=== PATIENT | female | born 1965 | race Caucasian/White ===

== ENCOUNTER 2019-01-04 08:00 | Outpatient (CLI) | payer OTHER ==
[2019-01-04 12:50] LABS: BASOPHILS % (AUTO) 0.4 %; EOSINOPHILS # (AUTO) 0.2 10^3/uL (0.0-0.7); HGB - HEMOGLOBIN 12.5 g/dL (12.0-16.0); MEAN CORPUSCULAR HEMOGLOBIN 29.2 pg (27.0-31.0); MEAN CORPUSCULAR VOLUME 88.5 fL (81.0-99.0); MEAN PLATELET VOLUME 9.3 fL (7.9-10.8); MONOCYTES # (AUTO) 0.8 10^3/uL (0.0-1.0); NEUTROPHILS % (AUTO) 66.6 %; PLT - PLATELET COUNT 305 10^3/uL (130-450); RED BLOOD COUNT 4.26 10^6/uL (4.20-5.40); RED CELL DISTRIBUTION WIDTH 13.2 % (12.0-15.0)
[2019-01-04 13:37] LABS: % IRON SATURATION 10 % (20-50); ALBUMIN 3.6 g/dL (3.2-5.5); ALBUMIN/GLOBULIN RATIO 1.1 (1.0-2.2); ALKALINE PHOSPHATASE 43 IU/L (42-121); ALT ALANINE AMINOTRANSFERASE 21 IU/L (10-60); AST ASPARTATE AMINOTRANSFERASE 18 IU/L (10-42); BILIRUBIN,TOTAL 0.7 mg/dL (0.2-1.0); BUN - BLOOD UREA NITROGEN 15 mg/dL (6-20); CHOLESTEROL 180 mg/dL; CREATININE 0.9 mg/dL (0.4-1.0); GFR - MDRD 66 (>89); HDL CHOLESTEROL 61 mg/dL; IRON 46 ug/dL (28-170); LDL CHOLESTEROL,CALCULATED 95 mg/dL; LDL/HDL RATIO 1.6 (<4.4); TOTAL IRON BINDING CAPACITY 451 ug/dL (250-450); TRANSFERRIN 322 mg/dL (192-382); VLDL CHOLESTEROL 24 mg/dL
[2019-01-04 13:48] LABS: CALCIUM 9.2 mg/dL (8.5-10.3); CARBON DIOXIDE - CO2 26 mmol/L (21-32); CHLORIDE 105 mmol/L (101-111); GLUCOSE 87 mg/dL (70-100); SODIUM 139 mmol/L (135-145)
== END 2019-01-04 23:59 | disposition home or self-care (01) ==
LOC: LAB.WCP 08:00
PROVIDERS: ATTEND Physician Assistant
DX: Z00.00 Encounter for general adult medical examination without abnormal findings (principal); D50.9 Iron deficiency anemia, unspecified
CPT/HCPCS: 36415; 80053; 80061; 83540; 83721; 84443; 84466; 85025

== ENCOUNTER 2019-01-25 10:58 | Outpatient (CLI) | payer OTHER ==
--- NOTE | 2019-01-25 13:02 | Ultrasound Report ---
Reason: DYSFUNCTIONAL UTERINE BLEEDING Procedure Date: 01/25/2019 Accession Number: [id number] / [id number] Procedure: US - Pelvic w/Transvaginal CPT Code: FULL RESULT: EXAM: PELVIC ULTRASOUND EXAM DATE: 01/25/2019 12:34 PM. CLINICAL HISTORY: Dysfunctional uterine bleeding. COMPARISON: None. TECHNIQUE: Realtime transabdominal pelvic scan performed to identify the uterus and adnexa and as an overview of other pelvic structures, followed by transvaginal scan to provide greater detail of the uterus and adnexa, with static image documentation. FINDINGS: Uterus: 9.8 x 4.5 x 6.0 cm, volume 138 cc. Anteverted position. Normal overall size and echotexture. Masses: 2.6 cm low-density anterior myometrial mass consistent with fibroid. Similar-appearing 1.7 cm mass posterior fundus. Endometrium: 11 mm. Normal echotexture. Cervix: Nabothian cysts otherwise normal. Right Ovary: 3.6 x 1.7 x 2.1 cm, volume 6.7 cc. Normal echotexture and blood flow. Left Ovary: 3.9 x 2.7 x 4.1 cm, volume 22.5 cc. Mildly complex thick-walled/mildly crenulated avascular mass of the ovary most likely partially collapsed corpus luteum. Free Fluid: Trace. Other: None. IMPRESSION: 1. Myometrial masses as described consistent with uterine fibroids. Endometrial stripe 11 mm. 2. Complex cystic finding of the left ovary favors partially collapsed corpus luteal cyst. Recommend follow-up in 6-8 weeks to assess for expected resolution. RADIA
== END 2019-01-25 10:59 | disposition home or self-care (01) ==
LOC: DI 10:58
PROVIDERS: ATTEND Physician Assistant
DX: N85.9 Noninflammatory disorder of uterus, unspecified (principal); N83.202 Unspecified ovarian cyst, left side; N92.4 Excessive bleeding in the premenopausal period
CPT/HCPCS: 76830; 76856

== ENCOUNTER 2019-01-28 10:03 | Outpatient (CLI) | payer OTHER ==
--- NOTE | 2019-01-29 09:58 | Mammography Report ---
Reason: SCREENING MAMMO Procedure Date: 01/28/2019 Accession Number: [id number] / [id number] Procedure: MGN - Screening Mammo Dig Bilat CPT Code: FULL RESULT: EXAM: Screening Mammo Dig Bilat DATE: 01/28/2019 10:26 AM CLINICAL HISTORY: Screening encounter. History of cyclic breast tenderness. No reported risk factors. TECHNIQUE: (B) - Bilateral CC and MLO views were obtained. COMPARISON: 08/08/2016 through 09/29/2014. PARENCHYMAL PATTERN: (A) - The breasts demonstrate scattered fibroglandular densities bilaterally. FINDINGS: There are no suspicious masses, calcifications, or areas of distortion. IMPRESSION: Negative examination. BI-RADS category 1. RECOMMENDATION: (ANNUAL) - Recommend routine annual screening mammography. BI-RADS CATEGORY: (1) - Negative. STANDARD QUALIFYING STATEMENTS: 1. This examination was reviewed with the aid of Computer-Aided Detection (CAD). 2. A negative or benign imaging report should not preclude biopsy if clinically suspicious findings are present. 3. Dense breasts may obscure an underlying neoplasm. 4. This examination was reviewed without the aid of 3D breast imaging (tomosynthesis).
== END 2019-01-28 10:04 | disposition home or self-care (01) ==
LOC: DI.N 10:03
DX: Z12.31 Encounter for screening mammogram for malignant neoplasm of breast (principal)
CPT/HCPCS: 77067

== ENCOUNTER 2019-03-26 10:35 | Outpatient (CLI) | payer OTHER | END 2019-03-26 10:36 | disposition home or self-care (01) | LOC: LAB.WCP 10:35 | PROVIDERS: ATTEND Physician Assistant | DX: J02.9 Acute pharyngitis, unspecified (principal) | CPT/HCPCS: 87070 ==

== ENCOUNTER 2019-09-02 08:00 | Outpatient (CLI) | payer OTHER ==
[2019-09-02 18:21] LABS: HGB - HEMOGLOBIN 14.1 g/dL (12.0-16.0); MEAN CORPUSCULAR HEMOGLOBIN 29.9 pg (27.0-31.0); MEAN CORPUSCULAR VOLUME 96.4 fL (81.0-99.0); MEAN PLATELET VOLUME 11.4 fL (7.9-10.8); RED BLOOD COUNT 4.72 10^6/uL (4.20-5.40); WHITE BLOOD COUNT 7.1 x10^3/uL (4.8-10.8)
[2019-09-02 18:57] LABS: CRP - C-REACTIVE PROTEIN < 1.0 mg/dL (0-1.0)
[2019-09-02 19:00] LABS: RHEUMATOID FACTOR NEGATIVE (Negative)
[2019-09-02 19:07] LABS: URIC ACID 4.9 mg/dL (2.6-7.2)
[2019-09-04 10:41] LABS: ANA SCREEN NEGATIVE (NEGATIVE)
== END 2019-09-02 23:59 | disposition home or self-care (01) ==
LOC: LAB.WCP 08:00
PROVIDERS: ATTEND Physician Assistant Medical
DX: M25.50 Pain in unspecified joint (principal)
CPT/HCPCS: 36415; 84550; 85027; 85651; 86038; 86140; 86200; 86430

== ENCOUNTER 2019-12-13 04:59 | Emergency (ER) | payer OTHER ==
[2019-12-13] MEDS ORDERED: ACETAMINOPHEN 325 MG TABLET PO STA (05:27)
[2019-12-13] MEDS ORDERED: IBUPROFEN 600 MG TABLET PO STA (05:27)
--- NOTE | 2019-12-13 05:27 | ED Physician Documentation ---
History of Present Illness - Stated complaint Stated Complaint: R ANKLE PX - Additonal information Additional information: This is a 54-year-old female presents with right ankle pain after an inversion type injury. She was stepping off a stairwell carrying a grandchild and she had a inversion injury of her ankle she had immediate pain she felt her ankle went almost to 90 degrees. She was unable to bear weight on it initially but after icing it she was able to take a few steps though with pain. She states the pain is not gotten better with prompting her to come to the emergency department. Initial injury was last night. She has not taken any pain medications recently. She has been icing it since this occurred. She denies numbness. 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: Tubal ligation HEENT: Cataracts - Present Medications Home Medications: Ambulatory Orders Medication Instructions Recorded Confirmed Ferrous Sulfate 324 mg PO DAILY 12/04/14 12/04/14 Aspirin 81 mg PO 12/13/19 Hydrocodone/Acetaminophen 1 each PO Q6H PRN #10 tablet 12/13/19 [Hydrocodon-Acetaminophen 5-325] Sennosides/Docusate Sodium 1 each PO BID PRN #30 tablet 12/13/19 [Docusate Sodium-Sennosides Tab] amLODIPine [Norvasc] 5 mg PO ONCE 12/13/19 12/13/19 raNITIdine HCl [Zantac] 12/13/19 - Allergies Allergies/Adverse Reactions: Allergies Allergy/AdvReac Type Severity Reaction Status Date / Time Sulfa (Sulfonamide Allergy Intermediate Hives Verified 01/02/14 09:59 Antibiotics) PD ED PE NORMAL - Vitals Vital signs reviewed: Yes - General General: Alert and oriented X 3, No acute distress - HEENT HEENT: PERRL - Cardiac Cardiac: Other (Well-perfused extremities, skin warm and dry) - Respiratory Respiratory: No respiratory distress - Abdomen Abdomen: Non distended - Extremities Extremities: No deformity, Other (There is ecchymosis over the lateral malleolus of the right ankle extending around 5 cm up and 3 cm down anteriorly to the malleolus. There is tenderness in this region. The medial malleolus is nontender as is the forefoot. The calcaneus is also nontender. Patient is able to wiggle her toes, movement of the ankle itself causes pain. The proximal tibia and fibula are atraumatic in appearance and nontender. Sensation intact light touch over the entire foot.) - Neuro Neuro: Alert and oriented X 3 - Psych Psych: Normal mood, Normal affect Results - Vitals Vitals: Vital Signs - 24 hr 12/13/19 05:11 Temperature 36.8 C Heart Rate 96 Respiratory 17 Rate Blood Pressure 152/86 H O2 Saturation 98 Oxygen O2 Source Room air Procedures - Splint (location) Lower extremity right Splint applied by: Tech Type of splint: Fiberglass, Short leg, Posterior, Stirrup Other: Patient tolerated well, No complications, Neurovascular intact, Crutches provided PD MEDICAL DECISION MAKING - ED course ED course: Patient presents with an isolated right ankle injury after an inversion type mechanism. She is neurovascular intact she does have some extensive bruising over the lateral malleolus. There is no tenderness on the proximal leg. X-rays reveal a very slightly displaced distal fibular fracture at the level of the ankle mmortise. We put her in a posterior short leg slab with a stirrup (AO splint), And will make her nonweightbearing with crutches. She was given Tylenol ibuprofen here, she did not want any stronger medication at this time. After the splint was applied she continued to be neurovascularly intact. I discussed with her she needs orthopedic follow-up and in the meantime should be nonweightbearing. She was prescribed a small number of hydrocodone to be used if necessary, and I reviewed return precautions emphasizing symptoms of compartment syndrome. Patient agreed this plan and was discharged home in the care of her . Departure - Departure Disposition: 01 Home, Self Care Clinical Impression: Fibula fracture Qualifiers: Encounter type: initial encounter Fibula location: distal Fracture type: closed Fracture morphology: other fracture Laterality: right Qualified Code(s): S82.831A - Other fracture of upper and lower end of right fibula, initial encounter for closed fracture Condition: Good Instructions: ED Fx Ankle Lateral Malleolus Follow-Up: Bryant Kumari MD [Provider Admit Priv/Credential] - (Call today for an appt in the next week) Sarah Phan PA-C [Primary Care Provider] - Prescriptions: Hydrocodone/Acetaminophen [Hydrocodon-Acetaminophen 5-325] 1 each PO Q6H PRN #10 tablet PRN Reason: pain Sennosides/Docusate Sodium [Docusate Sodium-Sennosides Tab] 1 each PO BID PRN #30 tablet PRN Reason: Constipation Comments: You broke the outside portion of your ankle - the bone called the fibula. We have placed a splint, do not walk on the ankle/bear weight on this injury until you are cleared to do so by an orthopedist. Use the crutches. Please call today for an appointment with Dr. Kumari in the next week. If you are having greatly increasing pain, numbness, or other concerning symptoms return to the emergency department for recheck. I am prescribing you some Vicodin for pain, but if you can manage your pain with just Tylenol and ibuprofen alone, that is ideal. Do not drink alcohol or drive while taking narcotic pain medication. Note that many narcotic pain relievers also contain Tylenol/acetaminophen. Please ensure that your total dose of acetaminophen from all sources does not exceed 3 g (3000 mg) per day. You may get constipated while on this medication. Take a stool softener such as Colace twice a day while you are on it. Also add an nari-zmv-onptwbg laxative such as senna or MiraLAX on any day that you do not have a bowel movement. If you received a narcotic pain medication or sedative while in the emergency department, do not drive for the next 24 hours.
--- NOTE | 2019-12-13 05:54 | XRAY Report ---
Reason: R ankle lateral bruising and pain after inversion Procedure Date: 12/13/2019 Accession Number: [id number] / [id number] Procedure: XR - Ankle 3 View RT CPT Code: Final Report FULL RESULT: EXAM: RIGHT ANKLE RADIOGRAPHY EXAM DATE: 12/13/2019 05:42 AM. CLINICAL HISTORY: R ankle lateral bruising and pain after inversion. COMPARISON: None. TECHNIQUE: 3 views. FINDINGS: Bones: Oblique, mildly displaced fracture of the distal fibular shaft. Joints: Normal. No effusion. No subluxations. The ankle mortise is normally aligned. Soft Tissues: Lateral soft tissue swelling. IMPRESSION: Oblique, mildly displaced fracture of the distal fibular shaft. RADIA
[2019-12-13 06:56] VITALS: BP 146/92
== END 2019-12-13 06:43 | disposition home or self-care (01) ==
LOC: ED 04:59
DX: Z79.82 Long term (current) use of aspirin (principal); S82.831A Other fracture of upper and lower end of right fibula, initial encounter for closed fracture; X50.9XXA Other and unspecified overexertion or strenuous movements or postures, initial encounter; Y93.F9 Activity, other caregiving; Y92.008 Other place in unspecified non-institutional (private) residence as the place of occurrence of the external cause
CPT/HCPCS: 29515; 73610; 99283; 99284; A9270

== ENCOUNTER 2019-12-25 08:53 | Day surgery (SDC) | payer OTHER ==
[~2019-12-25 08:53] MED LIST: CEFAZOLIN SODIUM IN 0.9 % NACL 2 GM/100 ML BAG IV ONE
[2019-12-25 09:22] LABS: HCG UR QUAL NEGATIVE
[2019-12-25] MEDS ORDERED: LACTATED RINGERS 1,000 ML IV ONE ×2 (09:41→12:21)
--- NOTE | 2019-12-25 09:55 | ANESTHESIA ---
Pre-Anesthesia VS, & Labs - Diagnosis right ankle lateral maleolus fracture - Procedure Right ankle ORIF lateral maleolus fracture possible medial exploration Vital Signs: Temp Pulse Resp BP Pulse Ox 36.8 C 76 16 127/78 100 12/25/19 09:22 12/25/19 09:22 12/25/19 09:22 12/25/19 09:22 12/25/19 09:22 Height 5 ft Weight (kg) 64.7 kg Body Mass Index 28.3 - NPO >8 hours - Is Patient ?: No Home Medications and Allergies Home Medications: Ambulatory Orders Albuterol Sulf [Ventolin Hfa Inhaler] 1 - 2 puffs INH Q4HR PRN 12/23/19 Cetirizine [ZyrTEC] 10 mg PO DAILY PRN 12/23/19 EPINEPHrine [Epinephrine] 0.3 mg IJ ONCE PRN 12/23/19 Fluticasone Propionate [24 Hour Allergy] 2 spray NS DAILY PRN 12/23/19 Fluticasone Propionate [Flovent Hfa] 2 puffs IH DAILY 12/23/19 Ferrous Sulfate 324 mg PO DAILY 12/04/14 Aspirin 81 mg PO DAILY 12/13/19 amLODIPine [Norvasc] 5 mg PO ONCE 12/13/19 raNITIdine HCl [Zantac] 150 mg PO BID 12/13/19 Albuterol Sulf [Ventolin Hfa Inhaler] 1 - 2 puffs INH Q4HR PRN 12/23/19 Cetirizine [ZyrTEC] 10 mg PO DAILY PRN 12/23/19 EPINEPHrine [Epinephrine] 0.3 mg IJ ONCE PRN 12/23/19 Fluticasone Propionate [24 Hour Allergy] 2 spray NS DAILY PRN 12/23/19 Fluticasone Propionate [Flovent Hfa] 2 puffs IH DAILY 12/23/19 Allergies/Adverse Reactions: Allergies Allergy/AdvReac Type Severity Reaction Status Date / Time Sulfa (Sulfonamide Allergy Intermediate Hives Verified 12/25/19 09:32 Antibiotics) gluten Allergy Unknown Verified 12/16/19 14:25 peanut Allergy Unknown Verified 12/16/19 14:25 soy Allergy Itching Verified 12/25/19 09:31 Anes History & Medical History - Anesthetic History Anesthesia Complications: reports: No previous complications - Medical History Cardiovascular: reports: None, Other (Raynaud's) Pulmonary: reports: Asthma (Has stopped long acting inhalors for 2 weeks. Denies any asthma symptoms), Sleep apnea Gastrointestinal: reports: GERD (controlled on medication) Urinary: reports: None Neuro: reports: None Musculoskeletal: reports: None, Other (seeing automated weaver for hand/joint pain. Ruling out RA) Endocrine/Autoimmune: reports: None Blood Disorders: reports: None Skin: reports: None Smoking Status: Never smoker Psychosocial: reports: No issues indicated - Surgical History General: Colonoscopy Eyes Ears Nose Throat (EENT): Cataracts Gynecologic: Tubal ligation Exam General: Alert, Oriented x3, Cooperative, No acute distress Dental: Other (Front tooth chipped has veneer) Mouth Openin Fingerbreadth Neck Mobility: Normal Mallampati classification: I Thyromental Distance: greater than 6 cm Respiratory: Lungs clear, Normal breath sounds, No respiratory distress, No accessory muscle use Cardiovascular: Regular rate, Normal S1, Normal S2, No murmurs Mental/Cognitive Status: Alert/Oriented X3, Normal for patient Plan Anesthesia Type: General, Popliteal Block (Right) Regional Block: Per Surgeon's request for Post Op pain control Consent for Procedure(s) Verified and Reviewed: Yes Code Status: Attempt Resuscitation ASA classification: 2-Mild systemic disease Is this case an emergency?: No
[2019-12-25] MEDS ORDERED: BUPIVACAINE 0.25% PF 30 ML VIAL ONE (09:59)
[2019-12-25] MEDS ORDERED: ACETAMINOPHEN 1,000 MG/100 ML 100 ML IV ONE (10:25)
[2019-12-25] MEDS ORDERED: MIDAZOLAM 2 MG/2 ML VIAL IVP ONE (10:25)
[2019-12-25] MEDS ORDERED: ONDANSETRON 4 MG/2 ML VIAL IVP ONE (10:25)
[2019-12-25] MEDS ORDERED: GLYCOPYRROLATE 1 MG/5 ML VIAL IVP ONE (10:25)
[2019-12-25] MEDS ORDERED: PHENYLEPHRINE 10 MG/ML VIAL IV ONE (10:25)
[2019-12-25] MEDS ORDERED: ePHEDrine 50 MG/ML VIAL IVP ONE (10:25)
[2019-12-25] MEDS ORDERED: NEOSTIGMINE 1 MG/1 ML 10 ML MDV IVP ONE (10:25)
[2019-12-25] MEDS ORDERED: LIDOCAINE-MPF 2% 5 ML VIAL IM ONE (10:25)
[2019-12-25] MEDS ORDERED: PROPOFOL 200 MG/20 ML VIAL IVP ONE (10:25)
[2019-12-25] MEDS ORDERED: DEXAMETHASONE 4 MG/ML VIAL IVP ONE (10:25)
[2019-12-25] MEDS ORDERED: ROCURONIUM 50 MG/5 ML VIAL IVP ONE (10:25)
[2019-12-25] MEDS ORDERED: ESMOLOL 100 MG/10 ML VIAL IVP ONE (10:25)
[2019-12-25] MEDS ORDERED: ONDANSETRON 4 MG/2 ML VIAL IVP PRN (12:30)
[2019-12-25] MEDS ORDERED: oxyCODONE 5 MG TABLET PO PRN (12:30)
--- NOTE | 2019-12-25 12:40 | IMMEDIATE POSTOPERATIVE NOTE ---
Immediate Postoperative Note - Procedure Note Procedure Date: 12/25/19 Pre-Op Diagnosis: Right lateral malleolus fracture, medial deltoid sprain Ankle Procedure: Open reduction internal fixation right lateral malleolus fracture ankle, splint treatment medial deltoid sprain Post-Op Diagnosis: Same Primary Surgeon: Eusebia Kumari Division Toll Wire Chief: None Anesthesia Type: General LMA, Regional block Complications: No complications Estimated Blood Loss (in cc): 25 Drains, Catheters, Devices: Jovanni distal fibular periarticular plate and screw Plan of Care: Patient Reji procedure well instrument and sponge counts correct patient transferred to recovery in stable condition. Nonweightbearing right lower extremity assistance and assistive device as necessary. Splint to remain clean dry and intact elevate at rest Follow-up 10 to 14 days or sooner prn Standard ankle ORIF protocol
[2019-12-25] MEDS ORDERED: ONDANSETRON 4 MG/2 ML VIAL ONE (13:11)
[2019-12-25] MEDS ORDERED: SCOPOLAMINE PATCH TOP ONE ×2 (13:39→14:00)
[2019-12-25 14:59] VITALS: BP 115/80
--- NOTE | 2019-12-25 15:07 | XRAY Report ---
Reason: SURGERY Procedure Date: 12/25/2019 Accession Number: [id number] / [id number] Procedure: FL - OR C-Arm Procedure CPT Code: Final Report FULL RESULT: EXAM: FLUOROSCOPIC GUIDANCE EXAM DATE: 12/25/2019 11:37 AM. CLINICAL HISTORY: Surgery. COMPARISON: None. FINDINGS: Lateral plate and screw construct spanning a distal fibular fracture at multiple time points in expected location and configuration within the limitations of fluoroscopic capture images. IMPRESSION: Fluoroscopic guidance provided for right ankle fracture fixation. Total fluoroscopy time: 0.3 minutes. Number of images: 4. RADIA
--- NOTE | 2019-12-25 15:24 | OPERATIVE REPORT ---
DATE OF SERVICE: 12/25/2019 Physician: Bryant Kumari MD SURGEON: Bryant Kumari MD ERGONOMICS TECHNICIAN: None. ANESTHESIOLOGIST: Mitul Hendrix CRNA. ANESTHESIA TYPE: General anesthesia, as well as right lower extremity regional block under ultrasoun d guidance. ESTIMATED BLOOD LOSS: Less than 25 mL FLUIDS: 600 mL lactated Ringer's. TOURNIQUET TIME: 68 minutes at 275 mmHg. PREOPERATIVE ANTIBIOTICS: Two grams weight-based IV Ancef. ORTHOPEDIC IMPLANTS: Jovanni distal fibular periarticular plate and screws, both fully threaded 4.0 c ancellous screws and fully threaded 3.5 cortical screws. PREOPERATIVE DIAGNOSES 1. Right lateral malleolar ankle fracture. 2. Right medial deltoid sprain. POSTOPERATIVE DIAGNOSES 1. Right lateral malleolar ankle fracture. 2. Right medial deltoid sprain. PROCEDURES 1. Right lateral ankle open reduction internal fixation. 2. Right ankle splint treatment, medial deltoid sprain. HISTORY OF PRESENT ILLNESS: The patient is a 54-year-old female who injured her right ankle and was indicated for operative treatment for unstable ankle injury. Please see risks, benefits, alternative s previously reviewed with the patient and the patient's . These were again highlighted in th e preoperative care unit. Their questions were answered. They verbalized understanding of the above and verbalized wish to proceed with operative treatment. Informed consent was given. DESCRIPTION OF PROCEDURE: On 12/25/2019, patient was identified in the preoperative care unit. She identifies her right ankle as the operative site. Skin is inspected and noted to be free of any frac ture blisters. It is signed. She received preoperative weight-based IV antibiotics. She was zora t to the operating room after regional block under ultrasound guidance administered by anesthesia joey knapp. The patient had general anesthesia administered. She was placed supine on the operating table. Head, neck and extremities placed in anatomically comfortable and safe position to avoid peripheral n erve stretch compression. Patient's right lower extremity had a well-padded tourniquet placed high o n the right thigh, taking care to avoid encompassing genitalia. Patient's right lower extremity was first prepped with Hibiclens solution, followed by alcohol, followed by prepping and draping with Chl oraPrep solution. At this time, surgical pause identifies right ankle as the operative site. Esmarch bandage was used to exsanguinate the limb. Tourniquet was inflated. Incision was made over the posterolateral aspect of the distal fibula through skin and spreading dissection carried out. Care was taken to avoid dis section or retraction that could injure superficial peroneal nerve. At this point, the periosteum wa s identified and incised and elevated proximally and distally revealing fracture site. This was vini cleve of hematoma with a curette and small rongeur. It was copiously irrigated and then a lion jaw red uction clamp reduces the fracture, essentially anatomically. At this point, standard lag technique u sed to place an bugqtafx-fk-htmmzlprh screw, which was just through the second cortex to avoid over e xuberant penetration to avoid posterior structures. This holds the fracture nicely and then a neutra lization plate is placed laterally. It is precontoured plate and distal screws are placed in a stand robby fashion in unicortical manner to avoid penetration into the articular surface. Proximal screws w ere placed in bicortical fashion. Fluoroscopic image confirms appropriate fracture and hardware posi tion. After tightening of the screws and adequate purchase in cortex proximal and distal, the ankle was examined. A cotton test was performed. This was negative. No further indication for immediate exploration or other treatment or syndesmotic fixation. At this point, the wound was copiously irrig ated. Periosteum closed over the distal aspect of the plate, taking care to avoid encumbrance of sof t tissues. This is again copiously irrigated and skin is closed with 0 Vicryl, 2-0 Vicryl interrupte d nylon suture. Skin is washed, dried. Xeroform dressing is applied, 4 x 4's, and then soft roll fo llowed by a [place] splint in neutral. This is well-padded. The patient tolerated the procedure well. Instrument and sponge counts were correct. The patient wa s transferred to the recovery room in stable condition. She will follow standard postoperative right ankle ORIF protocol. The patient's contacted the waiting room. Case discussed. perioperative medication plans pr eviously reviewed. The patient denies any contraindication to medication plan and will use them as d irected. She will use narcotic analgesics as necessary, oral antibiotics for 24 hours. She was juan miguel mmended to use zqbg-bsh-npdghoc stool softener while on narcotic analgesics and then aspirin daily, t wice 325 mg for 1 month. She denied any contraindication to these medications and would use them as directed. She will follow up in 10-14 days or sooner should problems or questions arise. The patient will be nonweightbearing, right lower extremity, ice and elevate at rest, use assistance and assist device as necessary. TD: 12/25/2019 12:49
== END 2019-12-25 08:54 | disposition home or self-care (01) ==
LOC: SDS 08:53
PROVIDERS: ATTEND Orthopaedic Surgery Sports Medicine
PROC: 0QSJ04Z Reposition Right Fibula with Internal Fixation Device, Open Approach (ICD-10-PCS; principal; 2019-12-25 10:00)
DX: S82.61XA Displaced fracture of lateral malleolus of right fibula, initial encounter for closed fracture (principal); S93.421A Sprain of deltoid ligament of right ankle, initial encounter; X50.1XXA Overexertion from prolonged static or awkward postures, initial encounter; J45.909 Unspecified asthma, uncomplicated; Z79.82 Long term (current) use of aspirin; Z79.51 Long term (current) use of inhaled steroids
CPT/HCPCS: 27792; 81025; C1713; J0690; J3490; J7120

== ENCOUNTER 2020-02-27 12:29 | Outpatient (CLI) | payer OTHER ==
--- NOTE | 2020-02-27 15:34 | Ultrasound Report ---
Reason: RT KNEE JOINT PAIN Procedure Date: 02/27/2020 Accession Number: [id number] / [id number] Procedure: US - Duplex Venous Limited CPT Code: Final Report FULL RESULT: EXAM: RIGHT LOWER EXTREMITY VENOUS ULTRASOUND EXAM DATE: 02/27/2020 12:56 PM. CLINICAL HISTORY: Right knee pain and lower extremity swelling COMPARISON: None. TECHNIQUE: Real-time sonographic vascular imaging was performed by the soil sort worker through the lower extremity utilizing both color-flow and Doppler spectral analysis. Multiple support representative static images were saved for review. FINDINGS: Common Femoral Vein (CFV): Normal. CFV-GSV Junction: Normal. Profunda Femoral Vein (PFV): Normal. Femoral Vein (FV) Prox: Normal. Femoral Vein (FV) Mid: Normal. Femoral Vein (FV) Dist: Normal. Popliteal Vein: Normal. Posterior Tibial Veins: Normal. Peroneal Veins: Normal. Other: None. IMPRESSION: No evidence for deep venous thrombosis. RADIA
== END 2020-02-27 12:30 | disposition home or self-care (01) ==
LOC: DI 12:29
PROVIDERS: ATTEND Orthopaedic Surgery Sports Medicine
DX: M25.561 Pain in right knee (principal); R22.41 Localized swelling, mass and lump, right lower limb
CPT/HCPCS: 93971

== ENCOUNTER 2020-04-14 13:25 | Outpatient (CLI) | payer OTHER ==
--- NOTE | 2020-04-14 14:06 | XRAY Report ---
Reason: RIGHT ANKLE FRACTURE Procedure Date: 04/14/2020 Accession Number: [id number] / [id number] Procedure: WCP - Ankle 3 View RT CPT Code: Final Report FULL RESULT: PROCEDURE: Ankle 3 View RT INDICATIONS: RIGHT ANKLE FRACTURE TECHNIQUE: 3 views of the ankle were acquired. COMPARISON: 01/02/2020 and 12/18/2019 FINDINGS: Bones: Stable postoperative changes and alignment of ORIF of distal right fibular fracture with lateral plate and screw fixation. No evidence for hardware complication. No acute fractures or dislocations. Ankle mortise is normally aligned. No suspicious bony lesions. Soft tissues: No tibiotalar joint effusion. Achilles tendon appears normal. IMPRESSION: Stable surgical fixation changes for distal right fibular fracture. Stable alignment without evidence for hardware complication. Reviewed by: Malick Panchal MD on 04/14/2020 2:05 PM PDT Approved by: Malick Panchal MD on 04/14/2020 2:05 PM PDT Station ID: [id number]
== END 2020-04-14 13:26 | disposition home or self-care (01) ==
LOC: DI.WCP 13:25
PROVIDERS: ATTEND Orthopaedic Surgery
DX: S82.831D Other fracture of upper and lower end of right fibula, subsequent encounter for closed fracture with routine healing (principal)

== ENCOUNTER 2021-01-15 18:02 | Outpatient (CLI) | payer OTHER ==
--- NOTE | 2021-01-15 20:43 | XRAY Report ---
PROCEDURE: Cervical Spine 2 View INDICATIONS: ACUTE NECK PAIN TECHNIQUE: 4 view(s) of the cervical spine were acquired. COMPARISON: None. FINDINGS: Bones: No fractures or dislocations to the C7-T1 level. The lateral masses of C1 appear intact on t he odontoid view. No suspicious bony lesions. There is straightening of normal cervical curvature. Minimal multilevel degenerative disc space narrowing is present. Minimal to mild multilevel uncoverte bral arthropathy is present. Soft tissues: No prevertebral soft tissue swelling. IMPRESSION: Cervical straightening with minimal degenerative change. Reviewed by: Stephanie Araya MD on 01/15/2021 8:42 PM PDT Approved by: Stephanie Araya MD on 01/15/2021 8:42 PM PDT Station ID: [id number]
--- NOTE | 2021-01-15 20:43 | XRAY Report ---
PROCEDURE: Lumbar Spine 2 View INDICATIONS: ACUTE LOW BACK PAIN TECHNIQUE: 2 views of the lumbar spine were acquired. COMPARISON: None. FINDINGS: Bones: 5 jol-iuh-mygqcxr vertebrae are present. There is normal bony alignment. No vertebral body compression fractures. No suspicious bony lesions. There is grade 1 anterolisthesis measuring 4 mm of L5 on S1. Pars defect is present at L5. Severe foraminal narrowing is present L5-S1. Soft tissues: Overlying bowel gas pattern is normal. No suspicious soft tissue calcifications. IMPRESSION: Grade 1 anterolisthesis with pars defect at L5-S1. Severe foraminal narrowing is present at L5-S1. Reviewed by: Stephanie Araya MD on 01/15/2021 8:41 PM PDT Approved by: Stephanie Araya MD on 01/15/2021 8:41 PM PDT Station ID: [id number]
== END 2021-01-15 18:03 | disposition home or self-care (01) ==
LOC: DI.N 18:02
PROVIDERS: ATTEND Physician Assistant Medical
DX: M50.30 Other cervical disc degeneration, unspecified cervical region (principal); M43.16 Spondylolisthesis, lumbar region; M48.07 Spinal stenosis, lumbosacral region

== ENCOUNTER 2021-06-16 08:00 | Outpatient (CLI) | payer OTHER | END 2021-06-16 23:59 | disposition home or self-care (01) | LOC: LAB.WCP 08:00 | PROVIDERS: ATTEND Physician Assistant Medical | DX: N64.52 Nipple discharge (principal) | CPT/HCPCS: 87070; 87205 ==

== ENCOUNTER 2021-07-14 08:50 | Outpatient (CLI) | payer OTHER ==
--- NOTE | 2021-07-15 08:52 | Ultrasound Report ---
LIMITED ULTRASOUND OF RIGHT BREAST: 07/14/2021 CLINICAL: Bloody nipple discharge right breast. Comparison is made to exams dated: 07/14/2021 mammogram, 01/28/2019 mammogram, 08/08/2016 mammogram, mammogram, 09/29/2014 mammogram, and 07/30/2012 mammogram - [facility]. Color flow ultrasound of the right breast retroareolar was performed on the areas of interest. Hernandez scale images of the real-time examination were reviewed. No discrete cystic or solid mass lesion identified in the retroareolar region. IMPRESSION: INCOMPLETE: NEEDS ADDITIONAL IMAGING EVALUATION There is no abnormality seen in the right breast to correspond with the bloody discharge from the nip ple in the sub-areolar depth, however, breast MRI is recommended. This exam was interpreted at Station ID: [id number]. Electronically Signed By: Ayad Guzman M.D. ddp/:07/14/2021 10:03:29 Ultrasound BI-RADS: 0 Indeterminate BI-RADS CATEGORY: (0) - 0 MRI [id number] Immediate follow-up LATERALITY: (B)
--- NOTE | 2021-07-15 08:52 | Mammography Report ---
BILATERAL DIGITAL DIAGNOSTIC MAMMOGRAM 3D/2D: 07/14/2021 CLINICAL: Bloody nipple discharge right breast. Comparison is made to exams dated: 01/28/2019 mammogram, 08/08/2016 mammogram, 07/25/2016 mammogram, mammogram, and 07/30/2012 mammogram - [facility]. There are scattered fibro glandular elements in both breasts. No significant masses, calcifications, or other findings are seen in either breast. IMPRESSION: INCOMPLETE: NEEDS ADDITIONAL IMAGING EVALUATION There is no abnormality seen in the right breast to correspond with the bloody discharge from the nip ple in the sub-areolar depth, however, ultrasound is recommended. Ultrasound will be performed immediately following the current exam. This exam was interpreted at Station ID: [id number]. NOTE: For mammograms, a report in lay terms will be sent to the patient. Approximately 15% of breast malignancies will not be visualized mammographically. In the management of a palpable breast mass, a negative mammogram must not discourage biopsy of a clinically suspicious lesion. Electronically Signed By: Ayad Guzman M.D. ddp/:07/14/2021 09:43:41 ACR BI-RADS Category 0: Incomplete 3340F PARENCHYMAL PATTERN: (A) - The breast(s) demonstrate(s) scattered fibroglandular densities. BI-RADS CATEGORY: (0) - 0 Ultrasound [id number] Immediate follow-up LATERALITY: (B)
== END 2021-07-14 08:51 | disposition home or self-care (01) ==
LOC: DI 08:50
PROVIDERS: ATTEND Physician Assistant Medical
DX: N64.52 Nipple discharge (principal)

== ENCOUNTER 2021-11-01 07:33 | Day surgery (SDC) | payer OTHER ==
[2021-11-01] MEDS ORDERED: CEFAZOLIN SODIUM IN 0.9 % NACL 2 GM/100 ML BAG IV ONE (07:47)
[2021-11-01] MEDS ORDERED: LACTATED RINGERS 1,000 ML IV ONE ×2 (08:02→10:24)
[2021-11-01] MEDS ORDERED: BUPIVACAINE 0.5% PF 10 ML VIAL ONE (08:06)
[2021-11-01] MEDS ORDERED: LIDOCAINE MPF 2%-EPI 1:200000 20 ML VIAL ONE (08:06)
--- NOTE | 2021-11-01 08:46 | ANESTHESIA ---
Pre-Anesthesia VS, & Labs - Diagnosis bloody nipple discharge - Procedure major duct excision right breast Vital Signs: Temp Pulse Resp BP Pulse Ox 36.9 C 86 19 126/79 100 11/01/21 07:48 11/01/21 07:48 11/01/21 07:48 11/01/21 07:48 11/01/21 07:48 Height: 5 ft 1 in Weight (kg): 61 kg Body Mass Index: 25.4 BMI Classification: Overweight - NPO >8 hours - Is Patient ?: No Home Medications and Allergies Home Medications: Ambulatory Orders Famotidine [Pepcid AC] 10 mg PO DAILY 10/28/21 Ferrous Sulfate 324 mg PO DAILY 12/04/14 Aspirin 81 mg PO DAILY 12/13/19 amLODIPine [Norvasc] 5 mg PO ONCE 12/13/19 Albuterol Sulf [Ventolin Hfa Inhaler] 1 - 2 puffs INH Q4HR PRN 12/23/19 Cetirizine [ZyrTEC] 10 mg PO DAILY PRN 12/23/19 EPINEPHrine [Epinephrine] 0.3 mg IJ ONCE PRN 12/23/19 Fluticasone Propionate [24 Hour Allergy] 2 spray NS DAILY PRN 12/23/19 Fluticasone Propionate [Flovent Hfa] 2 puffs IH DAILY 12/23/19 Famotidine [Pepcid AC] 10 mg PO DAILY 10/28/21 Allergies/Adverse Reactions: Allergies Allergy/AdvReac Type Severity Reaction Status Date / Time Sulfa (Sulfonamide Allergy Intermediate Hives Verified 12/25/19 09:32 Antibiotics) gluten Allergy Unknown Verified 12/16/19 14:25 peanut Allergy Unknown Verified 12/16/19 14:25 soy Allergy Itching Verified 12/25/19 09:31 Anes History & Medical History - Anesthetic History Anesthesia Complications: reports: Post-Operative Nausea/Vomiting - Medical History Cardiovascular: reports: None, Other (history coronary spasm) Pulmonary: reports: Asthma (well controlled) Gastrointestinal: reports: GERD (controlled with medication) Urinary: reports: None Neuro: reports: None Musculoskeletal: reports: None, Chronic back pain, Other Endocrine/Autoimmune: reports: None Blood Disorders: reports: None Skin: reports: None Smoking Status: Never smoker Psychosocial: reports: No issues indicated History of Cancer?: No - Surgical History General: reports: Colonoscopy Eyes Ears Nose Throat (EENT): reports: Cataracts Gynecologic: reports: Tubal ligation Orthopedic: reports: Other (orif ankle fracture) Exam General: Alert, Oriented x3, Cooperative, No acute distress Dental: WNL Mouth Openin Fingerbreadth Neck Mobility: Normal Mallampati classification: II Thyromental Distance: 4-6 cm Mental/Cognitive Status: Alert/Oriented X3, Normal for patient Plan Anesthesia Type: General Consent for Procedure(s) Verified and Reviewed: Yes Code Status: Attempt Resuscitation ASA classification: 2-Mild systemic disease Is this case an emergency?: No
[2021-11-01] MEDS ORDERED: ONDANSETRON 4 MG/2 ML VIAL IVP PRN ×2 (08:48→10:37)
[2021-11-01] MEDS ORDERED: ATROPINE ABBOJECT 1 MG/10 ML SYRINGE IVP PRN (08:48)
[2021-11-01] MEDS ORDERED: fentaNYL 100 MCG/2 ML VIAL IVP PRN (08:48)
[2021-11-01] MEDS ORDERED: MORPHINE 2 MG/ML CARPUJECT IVP PRN (08:48)
[2021-11-01] MEDS ORDERED: NALOXONE 0.4 MG/ML VIAL IVP PRN (08:48)
[2021-11-01] MEDS ORDERED: HYDROmorphone 0.5 MG/0.5 ML SYRINGE IVP PRN (08:48)
[2021-11-01] MEDS ORDERED: SCOPOLAMINE PATCH TOP ONE (08:59)
[2021-11-01] MEDS ORDERED: PROPOFOL 200 MG/20 ML VIAL IVP ONE (09:00)
[2021-11-01] MEDS ORDERED: LACTATED RINGERS 1,000 ML IV SCH (09:00)
[2021-11-01] MEDS ORDERED: SCOPOLAMINE PATCH TOP SCH (09:00)
[2021-11-01] MEDS ORDERED: fentaNYL 100 MCG/2 ML VIAL ONE (09:00)
[2021-11-01] MEDS ORDERED: MIDAZOLAM 2 MG/2 ML VIAL ONE (09:00)
[2021-11-01] MEDS ORDERED: LIDOCAINE-MPF 2% 5 ML VIAL ONE (09:00)
[2021-11-01] MEDS ORDERED: DEXAMETHASONE 4 MG/ML VIAL ONE (10:02)
[2021-11-01] MEDS ORDERED: LIDOCAINE 1%-EPI 1:100000 30 ML MDV SUBQ ONE ×2 (10:02)
[2021-11-01] MEDS ORDERED: BUPIVACAINE 0.5% PF 30 ML VIAL SUBQ ONE ×2 (10:02)
[2021-11-01] MEDS ORDERED: ONDANSETRON 4 MG/2 ML VIAL ONE (10:02)
--- NOTE | 2021-11-01 10:33 | OPERATIVE REPORT ---
Operative Report - General Procedure Date: 11/01/21 Planned Procedure: Right breast major duct excision Pre-Op Diagnosis: Right bloody nipple discharge Procedure Performed: Right breast major duct excision Post Op Diagnosis: Right bloody nipple discharge - Procedure Note Primary Surgeon: Francisca Anesthesia Provider: ANG Taylor Anesthesia Technique: General LMA, Local Pathology: Major duct to pathology marked with a short stitich at the nipple margin and a long stitch at the deep margin Estimated Blood Loss (mL): 5 Indications: Right bloody nipple discharge Findings: A large ectatic duct identified in the medial portion of the nipple Complications: None apparent - Other Other Information/Narrative: After obtaining informed consent, the patient is brought to the operating room and placed in the supine position on the operating table. Following successful induction of general anesthesia, appropriate padding of all bony prominences, and placement of appropriate monitors, the right breast was prepped and draped in the standard surgical fashion. A timeout was held per scope protocol.All elements of the surgical safety checklist were followed before, during, and after the procedure. We began the procedure by infiltrating a mixture of local anesthetics at the edge of the nipple areolar complex medially.The major duct producing the bloody fluid was identified and a 25-gauge Angiocath placed into the duct.The incision was then created and carried over to the edge of the nipple tissue. The duct was identified and ligated at its origin in the dermis. The deeper tissue was then included for approximately 1.5 cm with the specimen. This was all done sharply. A marking stitch was placed on the nipple margin and on the deep margin of the tissue. The specimen was placed in formalin for submission to pathology. The wound was checked for hemostasis. It was irrigated with warm water. A pursestring suture was placed at the edge of the nipple projection to prevent retraction. The incision was then closed in 2 layers with Vicryl and Monocryl suture and Dermabond was applied to the skin. All sponge, needle, and instrument counts were correct inclusion the case. The patient was allowed to wake from anesthesia without difficulty and taken to the postanesthesia care unit in good condition.
[2021-11-01] MEDS ORDERED: ACETAMINOPHEN 325 MG TABLET PO PRN (10:37)
[2021-11-01] MEDS ORDERED: IBUPROFEN 600 MG TABLET PO PRN (10:37)
[2021-11-01] MEDS ORDERED: oxyCODONE 5 MG TABLET PO PRN (10:37)
[2021-11-01 11:47] VITALS: BP 116/65
--- NOTE | 2021-11-01 16:27 | ANESTHESIA POST OP EVALUATION ---
Anesthesia Post Eval - Post Anesthesia Eval Vitals: Last Vital Signs Temp 36.5 C 11/01/21 11:35 Pulse 72 11/01/21 11:35 Resp 16 11/01/21 11:35 BP 116/65 11/01/21 11:35 Pulse Ox 100 11/01/21 11:35 CV Function Including HR & BP: Stable Pain Control: Satisfactory Nausea & Vomiting: Negative Mental Status: Baseline Respiratory Status: Airway Patent Hydration Status: Satisfactory Anesthesia Complications: None
== END 2021-11-01 07:34 | disposition home or self-care (01) ==
LOC: SDS 07:33
PROVIDERS: ATTEND Surgery
PROC: 0HBT0ZX Excision of Right Breast, Open Approach, Diagnostic (ICD-10-PCS; principal; 2021-11-01 08:45)
DX: N64.52 Nipple discharge (principal); Z80.3 Family history of malignant neoplasm of breast
CPT/HCPCS: 19110; J0690; J3490; J7120

== ENCOUNTER 2022-07-14 18:43 | Outpatient (CLI) | payer OTHER ==
--- NOTE | 2022-07-15 14:58 | Ultrasound Report ---
PROCEDURE: Pelvic w/Transvaginal INDICATIONS: ABN UTERINE BLEEDING TECHNIQUE: Real-time scanning was performed of the pelvic organs, with image documentation. Additional endovagi nal scanning was necessary due to incomplete visualization of the adnexal and endometrial structures by transabdominal scanning. COMPARISON: Pelvic ultrasound 01/25/2019 FINDINGS: Uterus: Uterus is anteverted and borderline enlarged measuring 10.2 x 4.4 x 5.3 cm. The myometrium is heterogeneous. The endometrium measures 11 mm in combined thickness. There is a focus of relativ e increased echogenicity within the endometrial complex measuring approximately 8 mm. There is a mid anterior intramural focus of heterogeneous echogenicity measuring 21 x 15 x 16 mm compared to 23 x 16 x 26 mm. There is a fundal posterior focus measuring 20 x 20 x 16 mm compared to 16 x 16 x 17 mm. Ovaries: The right ovary measures 2.7 x 1.7 x 2.5 cm, with a calculated ovarian volume of 5.8 cc. T he left ovary measures 5.1 x 3.7 x 4.5 cm, with a calculated ovarian volume of 43.7 cc. There is a fo cus of heterogeneous echogenicity within the right ovary measuring 17 x 13 x 14 mm. Focus of decrease d echogenicity is present within the left ovary measuring 30 x 34 x 34 mm. Less than 12 follicles can be seen in each ovary. No adnexal masses are seen. Other: No pathologic free abdominal or pelvic fluid. IMPRESSION: Foci of uterine heterogeneous echogenicity once again identified suspicious for fibroids. Complex right ovarian cyst. Simple left ovarian cyst. Endometrial complex measures 11 mm. This is greater than considered within normal limits if patient i s postmenopausal. In addition, there is a focus of increased echogenicity within the endometrium. Thi s could represent polyp. However, other etiologies cannot be excluded. Further evaluation with sonohy sterogram or endometrial sampling is recommended. Reviewed by: Stephanie Araya MD on 07/15/2022 2:57 PM PDT Approved by: Stephanie Araya MD on 07/15/2022 2:57 PM PDT Station ID: [id number]
== END 2022-07-14 18:44 | disposition home or self-care (01) ==
LOC: DI 18:43
PROVIDERS: ATTEND Obstetrics & Gynecology
DX: N93.9 Abnormal uterine and vaginal bleeding, unspecified (principal); N83.292 Other ovarian cyst, left side; N83.291 Other ovarian cyst, right side; R93.89 Abnormal findings on diagnostic imaging of other specified body structures

== ENCOUNTER 2023-02-28 11:52 | Day surgery (SDC) | payer OTHER ==
[2023-02-28] MEDS ORDERED: LACTATED RINGERS 1,000 ML IV ONE (11:56)
[2023-02-28] MEDS ORDERED: PROPOFOL 500 MG/50 ML 500 MG/50 ML VIAL ONE (12:45)
[2023-02-28] MEDS ORDERED: LIDOCAINE-MPF 2% 5 ML VIAL ONE (12:50)
--- NOTE | 2023-02-28 12:57 | ANESTHESIA ---
Pre-Anesthesia VS, & Labs - Diagnosis dysphagia, gerd, family history of colon cancer - Procedure EGD, colooscopy Vital Signs: Temp Pulse Resp BP Pulse Ox O2 Flow Rate 36.3 C L 80 16 150/84 H 100 02/28/23 12:03 02/28/23 12:03 02/28/23 12:03 02/28/23 12:03 02/28/23 12:03 Height: 5 ft 1 in Weight (kg): 64 kg Body Mass Index: 26.6 BMI Classification: Overweight - NPO Other (prep as directed) - Is Patient ?: No Home Medications and Allergies Home Medications: Ambulatory Orders Gabapentin [Neurontin] 600 mg PO BID 02/28/23 Montelukast [Singulair] 10 mg PO DAILY 02/28/23 Omeprazole 20 mg PO DAILY 02/28/23 Aspirin 81 mg PO DAILY 12/13/19 amLODIPine [Norvasc] 5 mg PO ONCE 12/13/19 Albuterol Sulf [Ventolin Hfa Inhaler] 1 - 2 puffs INH Q4HR PRN 12/23/19 Cetirizine [ZyrTEC] 10 mg PO DAILY PRN 12/23/19 EPINEPHrine [Epinephrine] 0.3 mg IJ ONCE PRN 12/23/19 Fluticasone Propionate [24 Hour Allergy] 2 spray NS DAILY PRN 12/23/19 Fluticasone Propionate [Flovent Hfa] 2 puffs IH DAILY PRN 12/23/19 Gabapentin [Neurontin] 600 mg PO BID 02/28/23 Montelukast [Singulair] 10 mg PO DAILY 02/28/23 Omeprazole 20 mg PO DAILY 02/28/23 Allergies/Adverse Reactions: Allergies Allergy/AdvReac Type Severity Reaction Status Date / Time Sulfa (Sulfonamide Allergy Intermediate Hives Verified 12/25/19 09:32 Antibiotics) gluten Allergy Unknown Verified 12/16/19 14:25 peanut Allergy Unknown Verified 12/16/19 14:25 soy Allergy Itching Verified 12/25/19 09:31 Anes History & Medical History - Anesthetic History Anesthesia Complications: reports: No previous complications - Medical History Cardiovascular: reports: None, Other Pulmonary: reports: Asthma Gastrointestinal: reports: GERD Urinary: reports: None Neuro: reports: None Musculoskeletal: reports: None, Chronic back pain, Other Endocrine/Autoimmune: reports: None Blood Disorders: reports: None Skin: reports: None Smoking Status: Never smoker - Surgical History General: reports: Colonoscopy Eyes Ears Nose Throat (EENT): reports: Cataracts Gynecologic: reports: Tubal ligation Orthopedic: reports: Other Exam General: Alert, Oriented x3 Dental: WNL Mouth Opening: Greater than 4 Fingerbreadths Neck Mobility: Normal Mallampati classification: II Thyromental Distance: greater than 6 cm Respiratory: Lungs clear Cardiovascular: Regular rate Plan Anesthesia Type: Total IV Consent for Procedure(s) Verified and Reviewed: Yes Code Status: Attempt Resuscitation ASA classification: 2-Mild systemic disease Is this case an emergency?: No
[2023-02-28] MEDS ORDERED: PROPOFOL 200 MG/20 ML VIAL IVP ONE (13:51)
[2023-02-28] MEDS ORDERED: LACTATED RINGERS 550 ML IV ONE (14:04)
--- NOTE | 2023-02-28 14:09 | ANESTHESIA POST OP EVALUATION ---
Anesthesia Post Eval - Post Anesthesia Eval Vitals: Last Vital Signs Temp 36.6 C 02/28/23 14:04 Pulse 89 02/28/23 14:04 Resp 16 02/28/23 14:04 BP 90/53 L 02/28/23 14:04 Pulse Ox 100 02/28/23 14:04 O2 Flow Rate CV Function Including HR & BP: Stable Pain Control: Satisfactory Nausea & Vomiting: Negative Mental Status: Baseline Respiratory Status: Airway Patent Hydration Status: Satisfactory Anesthesia Complications: None
[2023-02-28 14:48] VITALS: BP 124/80
== END 2023-02-28 11:53 | disposition home or self-care (01) ==
LOC: SDS 11:52
PROVIDERS: ATTEND Surgery
PROC: 0DB98ZX Excision of Duodenum, Via Natural or Artificial Opening Endoscopic, Diagnostic (ICD-10-PCS; principal; 2023-02-28 12:30)
PROC: 0DB78ZX Excision of Stomach, Pylorus, Via Natural or Artificial Opening Endoscopic, Diagnostic (ICD-10-PCS; 2023-02-28 12:30)
DX: Z12.11 Encounter for screening for malignant neoplasm of colon (principal); K57.30 Diverticulosis of large intestine without perforation or abscess without bleeding; K21.9 Gastro-esophageal reflux disease without esophagitis; K31.7 Polyp of stomach and duodenum; R10.13 Epigastric pain; R13.10 Dysphagia, unspecified; Z86.010 Personal history of colon polyps; Z80.0 Family history of malignant neoplasm of digestive organs; Z83.71 Family history of colonic polyps; J45.909 Unspecified asthma, uncomplicated; I10 Essential (primary) hypertension
CPT/HCPCS: 43239; 45378; J7120

== ENCOUNTER 2023-03-01 09:02 | Outpatient (CLI) | payer OTHER ==
--- NOTE | 2023-03-02 09:13 | Mammography Report ---
BILATERAL DIGITAL SCREENING MAMMOGRAM 3D/2D: 03/01/2023 CLINICAL: Family history of breast cancer. Routine screening. Comparison is made to exams dated: 08/02/2021 breast MRI - [facility], 07/14/2021 ultrasound, 07/14 mammogram, 01/28/2019 mammogram, 08/08/2016 mammogram, and 07/25/2016 mammogram - [facility]. There are scattered areas of fibroglandular density in both breasts (category b / 25%-50% glandular t issue). No significant masses, calcifications, or other findings are seen in either breast. There has been no significant interval change. IMPRESSION: NEGATIVE There is no mammographic evidence of malignancy. A 1 year screening mammogram is recommended. Based on the Tyrer Cuzick model (a risk assessment model) the patients lifetime risk is 13.7% and he r 10 year risk is 4.5%. According to the ACR, ACS, and NCCN guidelines, an annual breast MRI exam italo ng with mammogram is recommended if the patients lifetime risk is 20% or greater. This exam was interpreted at Station ID: [id number]. NOTE: For mammograms, a report in lay terms will be sent to the patient. Approximately 15% of breast malignancies will not be visualized mammographically. In the management of a palpable breast mass, a negative mammogram must not discourage biopsy of a clinically suspicious lesion. Electronically Signed By: Malick [email or web address]/jaye:03/01/2023 10:35:37 letter sent: No_Letter ACR BI-RADS Category 1: Negative 3341F PARENCHYMAL PATTERN: (A) - The breast(s) demonstrate(s) scattered fibroglandular densities. BI-RADS CATEGORY: (1) - 1 Mammogram [id number] 1 year screening LATERALITY: (B)
== END 2023-03-01 09:03 | disposition home or self-care (01) ==
LOC: DI.N 09:02
PROVIDERS: ATTEND Surgery
DX: Z12.31 Encounter for screening mammogram for malignant neoplasm of breast (principal); Z80.3 Family history of malignant neoplasm of breast

== ENCOUNTER 2024-02-03 09:46 | Outpatient (CLI) | payer OTHER ==
[2024-02-03 18:51] LABS: BASOPHILS % (AUTO) 0.7 %; EOSINOPHILS # (AUTO) 0.2 10^3/uL (0.0-0.7); EOSINOPHILS % (AUTO) 4.1 %; HCT - HEMATOCRIT 44.4 % (37.0-47.0); LYMPHOCYTES # (AUTO) 1.4 10^3/uL (1.5-3.5); LYMPHOCYTES % (AUTO) 24.5 %; MEAN CORPUSCULAR HEMOGLOBIN 25.8 pg (27.0-31.0); MEAN CORPUSCULAR HGB CONC 29.3 g/dL (32.0-36.0); MEAN CORPUSCULAR VOLUME 88.1 fL (81.0-99.0); MEAN PLATELET VOLUME 11.5 fL (7.9-10.8); MONOCYTES # (AUTO) 0.4 10^3/uL (0.0-1.0); MONOCYTES % (AUTO) 7.8 %; NEUTROPHILS # (AUTO) 3.6 10^3/uL (1.5-6.6); NEUTROPHILS % (AUTO) 62.7 %; PLT - PLATELET COUNT 299 10^3/uL (130-450); RED BLOOD COUNT 5.04 10^6/uL (4.20-5.40); RED CELL DISTRIBUTION WIDTH 17.3 % (12.0-15.0); WHITE BLOOD COUNT 5.7 x10^3/uL (4.8-10.8)
[2024-02-03 19:16] LABS: THYROID STIMULATING HORMONE 1.21 uIU/mL (0.34-5.60)
[2024-02-03 19:20] LABS: ALBUMIN 4.2 g/dL (3.2-5.5); ALBUMIN/GLOBULIN RATIO 1.5 (1.0-2.2); ALKALINE PHOSPHATASE 55 IU/L (42-121); ALT ALANINE AMINOTRANSFERASE 18 IU/L (10-60); AST ASPARTATE AMINOTRANSFERASE 17 IU/L (10-42); BILIRUBIN,TOTAL 0.5 mg/dL (0.2-1.0); BUN - BLOOD UREA NITROGEN 17 mg/dL (6-20); CALCIUM 10.5 mg/dL (8.5-10.3); CARBON DIOXIDE - CO2 28 mmol/L (21-32); CHLORIDE 106 mmol/L (101-111); CHOL/HDL RATIO 3.4 (<4.4); CHOLESTEROL 238 mg/dL; CREATININE 0.8 mg/dL (0.6-1.3); GFR - MDRD 74 (>89); GLUCOSE 91 mg/dL (74-104); HDL CHOLESTEROL 69 mg/dL; LDL CHOLESTEROL,CALCULATED 150 mg/dL; LDL/HDL RATIO 2.2 (<4.4); POTASSIUM 4.6 mmol/L (3.5-4.5); SODIUM 140 mmol/L (135-145); TRIGLYCERIDES 96 mg/dL (48-352); VLDL CHOLESTEROL 19 mg/dL
== END 2024-02-03 09:47 | disposition home or self-care (01) ==
LOC: LAB.N 09:46
PROVIDERS: ATTEND Physician Assistant Medical
DX: Z00.00 Encounter for general adult medical examination without abnormal findings (principal)
CPT/HCPCS: 36415; 80053; 80061; 83721; 84443; 85025

== ENCOUNTER 2024-02-17 11:07 | Outpatient (CLI) | payer OTHER ==
[2024-02-17 19:29] LABS: RHEUMATOID FACTOR NEGATIVE (Negative)
== END 2024-02-17 11:08 | disposition home or self-care (01) ==
LOC: LAB.N 11:07
PROVIDERS: ATTEND Physician Assistant Medical
DX: M25.50 Pain in unspecified joint (principal)
CPT/HCPCS: 36415; 85651; 86038; 86140; 86200; 86225; 86430